=== PATIENT | female | born 1970 | race Caucasian/White ===

== ENCOUNTER 2016-11-09 16:50 | Emergency (ER) | payer OTHER ==
[~2016-11-09 16:50] MED LIST: FLEXERIL10 MG PO
== END 2016-11-09 18:27 | disposition home or self-care (01) ==
LOC: CFTX 16:50 → CED 16:50 → CFTX 17:48
DX: S83.92XA Sprain of unspecified site of left knee, initial encounter (principal); M25.462 Effusion, left knee; W18.30XA Fall on same level, unspecified, initial encounter; Y92.009 Unspecified place in unspecified non-institutional (private) residence as the place of occurrence of the external cause
CPT/HCPCS: 29505; 99283

== ENCOUNTER 2017-01-03 14:07 | Emergency (ER) | payer OTHER ==
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
== END 2017-01-03 17:26 | disposition home or self-care (01) ==
LOC: CED 14:07
DX: S13.4XXA Sprain of ligaments of cervical spine, initial encounter (principal); S46.911A Strain of unspecified muscle, fascia and tendon at shoulder and upper arm level, right arm, initial encounter; Z90.710 Acquired absence of both cervix and uterus; V43.52XA Car driver injured in collision with other type car in traffic accident, initial encounter
CPT/HCPCS: 70450; 71020; 72040; 73030; 99284